=== PATIENT | female | born 1970 | race Caucasian/White ===

== ENCOUNTER 2016-09-13 08:40 | Emergency (ER) | payer OTHER ==
[~2016-09-13] VITALS: Ht 167.6 cm; Wt 97.7 kg
[2016-09-13 08:47] VITALS: BP 122/69
--- NOTE | 2016-09-13 08:55 | NUR ---
PT AMBULATED TO BED 8
--- NOTE | 2016-09-13 09:22 | NUR ---
46/F BIB SELF C/O COUGH, BODYACHE & CHEST PAIN WHEN COUGHING X 5 DAYS. HX OF CIRRHOSIS. DENIES N/V/D; SKIN IS PINK/WARM/DRY; AAOX4 WITH EVEN AND STEADY GAIT; LUNGS CLEAR BL; HR EVEN AND REGULAR;ABDOMEN SOFT. PT DENIES ANY FEVER AT THIS TIME; PATIENT STATES PAIN OF 8/10 AT THIS TIME; PATIENT POSITIONED FOR COMFORT; HOB ELEVATED; BEDRAILS UP X2; BED DOWN. ER MD MADE AWARE OF PT STATUS.
--- NOTE | 2016-09-13 09:52 | NUR ---
ER MD DR PARTIDA EVALUATING PT AT BEDSIDE.
[2016-09-13] MEDS ORDERED: ALBUTEROL SULFATE/IPRATROPIU 3 ML SOL IH ONE ×2 (09:55→11:20)
--- NOTE | 2016-09-13 09:59 | NUR ---
RT AT BEDSIDE FOR 1ST BREATHING TREATMENT.
--- NOTE | 2016-09-13 10:24 | NUR ---
Patient appears to be resting comfortably in bed. Vital Signs within normal limits. Respirations even and unlabored. WILL CONTINUE TO MONITOR.
--- NOTE | 2016-09-13 11:25 | NUR ---
RT AT BEDSIDE FOR 2ND BREATHING TREATMENT.
--- NOTE | 2016-09-13 11:41 | NUR ---
PT STS " I FEEL BETTER. PAIN 04/16. Patient appears to be resting comfortably in bed. Vital Signs within normal limits. Respirations even and unlabored.WILL CONTINUE TO MONITOR.
[2016-09-13 12:53] VITALS: BP 121/75
--- NOTE | 2016-09-13 12:53 | NUR ---
Patient discharged with v/s stable. Written and verbal after care instructions given and explained. Patient alert, oriented and verbalized understanding of instructions. Ambulatory with steady gait. All questions addressed prior to discharge. ID band removed. Patient advised to follow up with PMD. Rx of PREDNISONE & ALBUTEROL given. Patient educated on indication of medication including possible reaction and side effects. Opportunity to ask questions provided and answered.
== END 2016-09-13 12:53 | disposition home or self-care (01) ==
LOC: MED 08:40
DX: J02.9 Acute pharyngitis, unspecified (principal); R03.0 Elevated blood-pressure reading, without diagnosis of hypertension; K74.60 Unspecified cirrhosis of liver
CPT/HCPCS: 71010; 94640; 99284; J7620; Q0092

== ENCOUNTER 2020-08-10 23:08 | Emergency (ER) | payer OTHER ==
[~2020-08-10] VITALS: Ht 165.1 cm; Wt 127.0 kg
[2020-08-10 23:10] VITALS: BP 141/71
[2020-08-10] MEDS ORDERED: ACETAMINOPHEN 325 MG TAB PO ONE (23:25)
[2020-08-11] MEDS ORDERED: ACET-9525 PO (00:03)
== END 2020-08-11 00:30 | disposition home or self-care (01) ==
LOC: MED 23:08
DX: S93.401A Sprain of unspecified ligament of right ankle, initial encounter (principal); Z79.899 Other long term (current) drug therapy; Z90.49 Acquired absence of other specified parts of digestive tract; X58.XXXA Exposure to other specified factors, initial encounter; Y93.01 Activity, walking, marching and hiking; Y92.89 Other specified places as the place of occurrence of the external cause; Y99.8 Other external cause status
CPT/HCPCS: 29515; 73610; 73630; 99284